=== PATIENT | female | born 1970 | race Caucasian/White ===

== ENCOUNTER 2020-07-18 11:46 | Emergency (ER) | payer OTHER ==
[~2020-07-18] VITALS: Ht 160 cm; Wt 63.5 kg
[~2020-07-18 11:46] MED LIST: ACET325 PO; ACET500 PO; ALBU90OI INH; ALUMAG30SU PO; AMOX250; AMPDEX10 PO; AZIT250 PO; B-1100 MG; BENADRYL25 MG PO; BENZ100A PO; BUPR100ER PO; CELEXA; CEPH500 PO; CHLO25 PO; CIPR500 PO; CITA20 PO; CLIN150 PO; CYAN100; CYAN1000 PO; Cipro500 MG PO; DOXY100 PO; FAMO20 PO; FOLI1 PO; HALO.05TC TOP; HYDACE5 PO; IBUP400 PO; INSLIS75I; LACT10SY PO; LEVO750 PO; LIBRIUM; LORA.5 PO; LORA1 PO; MELA3 PO; MOM PO; MULTI VITAMIN1 EACH PO; MULVITMIND PO; NALT50 PO; NICO14TP TOP; OMEP20ER PO; ONDA4ODT; ONDA4ODT MM; PANT40 PO; PENVK500; POTCHL20ER PO; PROACE100 PO; PROC10 PO; PROC5 PO; PROM25 PO; RANI150 PO; RXHYDACE PO; RXPROACE PO; RXPROM25 PO; Restoril15 MG PO; SACC250C PO; SERT100 PO; SERT50 PO; SLEEPING PILL; THIA100 PO; TRAM50; TRAM50 PO; TRIAOIA; Therapeutic M1 EAC5 PO; Zofran Odt8 MG SL; Zoloft50 MG PO
[2020-07-18] MEDS ORDERED: OXYACE7.5T PO (15:31)
[2020-07-18] MEDS ORDERED: CRUTCH2 XX (15:32)
[2020-07-20] MEDS ORDERED: BENADRYL25 MG PO (14:05)
== END 2020-07-18 16:14 | disposition home or self-care (01) ==
LOC: ER 11:46
DX: S22.42XA Multiple fractures of ribs, left side, initial encounter for closed fracture (principal); S82.832A Other fracture of upper and lower end of left fibula, initial encounter for closed fracture; S82.302A Unspecified fracture of lower end of left tibia, initial encounter for closed fracture; F41.9 Anxiety disorder, unspecified; Z88.0 Allergy status to penicillin; Z91.018 Allergy to other foods; W01.0XXA Fall on same level from slipping, tripping and stumbling without subsequent striking against object, initial encounter; Y93.01 Activity, walking, marching and hiking
CPT/HCPCS: 29505; 71101; 73562-LT; 73610; 96372-59; 99283-25; J1170

== ENCOUNTER 2020-07-21 11:18 | Day surgery (SDC) | payer OTHER ==
[~2020-07-21 11:18] MED LIST changes: +CRUTCH2 XX; +OXYACE7.5T PO
--- NOTE | 2020-07-21 12:08 | NUR ---
Lungs clear T/O to Auscultation. History, Chart, Medications and Allergies reviewed before start of procedure.Patient confirms NPO status and agrees with scheduled surgery. Patient States Post-Procedure ride home has been arranged.
--- NOTE | 2020-07-21 15:38 | NUR ---
PT IS DOING WELL AND AWAITING DC. WAITING FOR HER TO ARRIVE.
--- NOTE | 2020-07-21 16:04 | NUR ---
20 GAUGE IV D/C'D FROM LEFT FA AND WNL. Patient up to Ambulate independently. Gait steady. Discharge instructions reviewed with patient. Patient verbalizes understanding. Copy given to patient to take home. Discharged via wheelchair to private car for ride home.
== END 2020-07-21 23:27 | disposition home or self-care (01) ==
LOC: ORSCMMR 11:18
PROVIDERS: Orthopaedic Surgery
PROC: 0MQR0ZZ Repair Left Ankle Bursa and Ligament, Open Approach (ICD-10-PCS; principal; 2020-07-21 07:30)
DX: S93.492A Sprain of other ligament of left ankle, initial encounter (principal); S82.62XA Displaced fracture of lateral malleolus of left fibula, initial encounter for closed fracture; F17.210 Nicotine dependence, cigarettes, uncomplicated; K21.9 Gastro-esophageal reflux disease without esophagitis; Z79.899 Other long term (current) drug therapy
CPT/HCPCS: A9270; C1776; J1100; J2250; J2405; J2704; J3010; J7120

== ENCOUNTER 2020-10-28 23:41 | Emergency (ER) | payer OTHER ==
[~2020-10-28] VITALS: Ht 160 cm; Wt 56.2 kg
[2020-10-29 00:11] LABS: BASOPHILS ABSOLUTE AUTO 0.11 K/mm3 (0.00-0.23); BASOPHILS PERCENT AUTO 1 % (0-2); EOSINOPHILS ABSOLUTE AUTO 0.01 K/mm3 (0.00-0.68); EOSINOPHILS PERCENT AUTO 0 % (0-6); Hematocrit 39.4 % (33.0-51.0); Hemoglobin 13.9 g/dL (11.5-16.0); IMMATURE GRAN ABSOLUTE AUTO 0.07 K/mm3 (0.00-0.10); IMMATURE GRAN PERCENT AUTO 1 % (0-1); LYMPHOCYTES ABSOLUTE AUTO 0.43 K/mm3 (0.84-5.20); LYMPHOCYTES PERCENT AUTO 3 % (21-46); MONOCYTES ABSOLUTE AUTO 0.39 K/mm3 (0.16-1.47); MONOCYTES PERCENT AUTO 3 % (4-13); Mean Corpuscular HGB Conc 35.3 g/dL (31.5-36.5); Mean Corpuscular Volume 102 fL (80-100); Mean Platelet Volume 9.5 fL (9.1-12.4); NEUTROPHILS ABSOLUTE AUTO 13.18 K/mm3 (1.96-9.15); NEUTROPHILS PERCENT AUTO 93 % (41-73); Platelet Count 533 K/mm3 (150-400); RDW Coefficient Variation 18.7 % (11.7-14.2); RDW Standard Deviation 69.6 fL (35.1-46.3); Red Blood Cell Count 3.86 M/mm3 (3.80-5.20); White Blood Cell Count 14.19 K/mm3 (4.00-11.30)
[2020-10-29 00:29] LABS: Alanine Aminotransfer (ALT/SGP 28 U/L (12-78); Albumin, Blood 3.9 g/dL (3.4-5.0); Albumin/Globulin Ratio 1.3 (0.8-1.8); Alk Phos 118 U/L (50-136); Anion Gap 15 mmol/L (6-16); Aspartate Aminotrans (AST/SGOT 43 U/L (12-37); Bilirubin, Total 3.9 mg/dL (0.1-1.0); Blood Urea Nitrogen 10 mg/dL (8-24); Bun/Creatinine Ratio 14.7 (12.0-20.0); CO2, Blood 29 mmol/L (21-32); Chloride, Blood 90 mmol/L (98-108); Creatinine, Blood 0.68 mg/dL (0.40-1.00); Ethanol (Alcohol), Blood, Med <3 mg/dL; Globulin, Blood 3.1 g/dL (2.2-4.0); Glomerular Filtration Rate >60 (60-); Glucose, Blood 185 mg/dL (70-99); Potassium, Blood 3.3 mmol/L (3.5-5.5); Sodium, Blood 134 mmol/L (136-145)
[2020-10-29 00:32] LABS: Acetaminophen, Random <2.0 ug/mL (10.0-30.0); Salicylate <1.7 mg/dL (2.8-20.0)
[2020-10-29 03:10] LABS: Source, Urine Clean Catch
[2020-10-29 03:12] LABS: Blood, Urine 1+ (Neg); Glucose Qualitative, Urine Neg (Neg); Ketones, Urine 3+ (Neg); Leukocyte Esterase, Urine 2+ (Neg); Nitrite, Urine Pos (Neg); Protein, Urine 2+ (Neg); Specific Gravity, Urine 1.025 (1.003-1.022); Urobilinogen, Urine 3+ (Normal)
[2020-10-29 03:13] LABS: Appearance, Urine Hazy (Clear); Bilirubin, Urine 2+ (Neg); Color, Urine Amber (P-Yellow)
[2020-10-29 03:19] LABS: Amorphous Light (0-Heavy); Bacteria Many /hpf; Mucus Light (0-Heavy); Squamous Epithelial Cells Mod /hpf (Few); White Blood Cells, Urine TNTC /hpf (0-5)
[2020-10-29 03:24] LABS: U Amphetamine Screen Not Detected; U Barbituate Screen Not Detected; U Benzodiazapine Screen DETECTED; U Buprenorphine Screen Not Detected; U Cannabinoids Screen Not Detected; U Cocaine Screen Not Detected; U Methadone Screen Not Detected; U Methamphetamine Screen Not Detected; U Opiates Screen Not Detected; U Oxycodone Screen Not Detected; U Phencyclidine Screen Not Detected; U Propoxyphene Screen Not Detected
[2020-10-29] MEDS ORDERED: CEFP200 PO (04:47)
== END 2020-10-29 05:26 | disposition home or self-care (01) ==
LOC: ER 23:41
PROVIDERS: Emergency Medicine
DX: N39.0 Urinary tract infection, site not specified (principal)
CPT/HCPCS: 36415; 80053; 81001; 81025; 85025; 87086; 96365; 96366; 96368; 96375; 99285; G0480; J0696; J2060; J2405; J3411; J3475; J7042

== ENCOUNTER → 2021-02-15 | Outpatient (CLI) | payer OTHER ==
[~2021-02-15] MED LIST changes: +CEFP200 PO
[2021-02-18 11:10] LABS: HPV 16 Positive (Negative); HPV 18 Negative (Negative); HPV OTHER HR TYPES Positive (Negative)
== END ==
LOC: LAB 17:06 → LAB SHORT 17:06
PROVIDERS: Family Medicine
DX: Z01.419 Encounter for gynecological examination (general) (routine) without abnormal findings (principal); Z88.0 Allergy status to penicillin; Z88.1 Allergy status to other antibiotic agents; Z88.5 Allergy status to narcotic agent; Z91.018 Allergy to other foods
CPT/HCPCS: 87624; G0123

== ENCOUNTER → 2021-03-02 | Outpatient (CLI) | payer OTHER | END | disposition home or self-care (01) | LOC: LAB 07:35 → LAB SHORT 07:35 | DX: D06.0 Carcinoma in situ of endocervix (principal); N84.1 Polyp of cervix uteri; N84.0 Polyp of corpus uteri | CPT/HCPCS: 88305 ==

== ENCOUNTER 2021-06-16 13:23 | Day surgery (SDC) | payer OTHER ==
[~2021-06-16] VITALS: Ht 160 cm; Wt 98.5 kg
[2021-06-16 14:53] LABS: Anion Gap 10 mmol/L (6-16); Blood Urea Nitrogen 6 mg/dL (8-24); Bun/Creatinine Ratio 9.5 (12.0-20.0); CO2, Blood 23 mmol/L (21-32); Calcium, Blood 9.4 mg/dL (8.5-10.1); Chloride, Blood 106 mmol/L (98-108); Creatinine, Blood 0.63 mg/dL (0.40-1.00); Glomerular Filtration Rate >60 (60-); Glucose, Blood 117 mg/dL (70-99); Potassium, Blood 2.9 mmol/L (3.5-5.5); Sodium, Blood 139 mmol/L (136-145)
--- NOTE | 2021-06-16 16:13 | NUR ---
06/16/21 2734 Mitra Savage PT MOVED TO STEP DOWN AREA WITH DAUGHTER SENIA PRESENT TO SPEAK WITH DR. RUDD REGARDING MOVING FOWARD WITH THE PROCEEDURE TOMORROW DUE TO LOW POTASSIUM LEVELS. PT PROVIDED POTASSIUM CLORID TABS DISSOVLED IN WATER. CALL LIGHT WITHIN REACH. NO QUESTIONS OR CONCERNS AT THIS TIME. PT PROVIDED WATER AND A WARM BLANKET.
== END 2021-06-16 16:25 | disposition home or self-care (01) ==
LOC: ORSCSDS 13:23
PROVIDERS: Obstetrics & Gynecology
DX: N87.9 Dysplasia of cervix uteri, unspecified (principal); Z53.9 Procedure and treatment not carried out, unspecified reason
CPT/HCPCS: 80048; A9270

== ENCOUNTER 2021-09-22 07:31 | Day surgery (SDC) | payer OTHER ==
[~2021-09-22] VITALS: Ht 160 cm; Wt 65.1 kg
--- NOTE | 2021-09-22 08:54 | NUR ---
09/22/21 0854 Robbie Hill & JAY USED BY DR FLOWERS DURING PROCEDURE AT [facility].
== END 2021-09-22 10:33 | disposition home or self-care (01) ==
LOC: ORSCSDS 07:31
PROVIDERS: Obstetrics & Gynecology
PROC: 0UBC7ZX Excision of Cervix, Via Natural or Artificial Opening, Diagnostic (ICD-10-PCS; principal; 2021-09-22 08:30)
DX: D06.0 Carcinoma in situ of endocervix (principal); F10.20 Alcohol dependence, uncomplicated; F17.210 Nicotine dependence, cigarettes, uncomplicated; I10 Essential (primary) hypertension
CPT/HCPCS: 88305; J1885; J2250; J2704; J3010; J7120

== ENCOUNTER 2022-07-13 17:54 | Inpatient (IN) | payer OTHER ==
[~2022-07-13] VITALS: Ht 160 cm; Wt 64.6 kg
[~2022-07-13 17:54] MED LIST changes: +Acetaminophen650 M1; +IBUP200; +MULTI-VITAMIN1 EAC2 PO; +SERT25 PO; +STATIN; +TRAZ50 PO
[2022-07-13 20:11] LABS: Hematocrit 33.6 % (33.0-51.0); Hemoglobin 11.9 g/dL (11.5-16.0); Mean Corpuscular HGB 32.2 pg (26.0-34.0); Mean Corpuscular HGB Conc 35.4 g/dL (31.5-36.5); Mean Corpuscular Volume 91 fL (80-100); NRBC ABSOLUTE 0.02 K/mm3 (0.00-0.02); NRBC Auto 0.1 /100 WBC (0.0-0.2); RDW Coefficient Variation 16.5 % (11.7-14.2); RDW Standard Deviation 55.4 fL (35.1-46.3); White Blood Cell Count 14.12 K/mm3 (4.00-11.30)
[2022-07-13 20:38] LABS: Albumin, Blood 3.1 g/dL (3.4-5.0); Albumin/Globulin Ratio 0.8 (0.8-1.8); Calcium, Blood 14.5 mg/dL (8.5-10.1); Creatinine, Blood 0.57 mg/dL (0.40-1.00); Globulin, Blood 3.7 g/dL (2.2-4.0); Total Protein, Blood 6.8 g/dL (6.4-8.2)
[2022-07-13 21:16] LABS: BASOPHILS ABSOLUTE MAN 0.14 K/mm3 (0.00-0.23); BASOPHILS PERCENT MAN 1 % (0-2); EOSINOPHILS ABSOLUTE MAN 0.14 K/mm3 (0.00-0.68); EOSINOPHILS PERCENT MAN 1 % (0-6); LYMPHOCYTES ABSOLUTE MAN 0.84 K/mm3 (0.84-5.20); LYMPHOCYTES PERCENT MAN 6 % (21-46); MONOCYTES ABSOLUTE MAN 0.42 K/mm3 (0.16-1.47); MONOCYTES PERCENT MAN 3 % (4-13); NEUTROPHILS ABSOLUTE MAN 12.56 K/mm3 (1.96-9.15); SEG NEUTROPHILS PERCENT MAN 89 % (41-73); TOTAL CELLS COUNTED 100
[2022-07-13 21:22] LABS: Platelet Count 378 K/mm3 (150-400)
[2022-07-13 22:28] LABS: Source, Urine Clean Catch
[2022-07-13 22:30] LABS: Blood, Urine Neg (Neg); Glucose Qualitative, Urine Neg (Neg); Ketones, Urine Neg (Neg); Leukocyte Esterase, Urine 1+ (Neg); Nitrite, Urine Neg (Neg); Protein, Urine 1+ (Neg); Specific Gravity, Urine 1.015 (1.003-1.022); Urobilinogen, Urine 3+ (Normal)
[2022-07-13 23:03] LABS: Bilirubin, Urine 1+ (Neg)
[2022-07-13 23:09] LABS: Appearance, Urine Cloudy (Clear); Color, Urine Yellow (P-Yellow)
[2022-07-13 23:10] LABS: Amorphous Mod (0-Heavy); Bacteria Few /hpf; Red Blood Cells, Urine 0-2 /hpf (0-2); Squamous Epithelial Cells Few /hpf (Few)
[2022-07-13 23:11] LABS: Granular Casts 0-2 /lpf (0); Hyaline Casts 0-2 /lpf (0-2)
--- NOTE | 2022-07-14 04:00 | NUR ---
0220: PT ARRIVED IN UNIT. TRANSFERRED FROM [facility] TO BED WITH 1SBA, WENT TO RESTROOM TO HAVE A BM. PT HAD 1 LARGE FORM BM WHEN SHE GOT IN THE ROOM. PT APPEARST DISTRESS, C/O RECTAL PAIN AND SOME ABD PAIN. REPORTS CHILLS. VSS. TOLERATING PO INTAKE DENIES N/V. IV FLUIDS INFUSING. AOX4. ANXIOUS. WARM BLANKET WAS GIVEN, PT REPORTS RELIEF AND COMFORT. CALL LIGHT WITHIN REACH. WILL CONTINUE TO MONITOR.
--- NOTE | 2022-07-14 04:07 | NUR ---
SHIFT SUMMARY PT HAD 1 LARGE BM IN THE UNIT, 2 LARGE BM WHEN SHE WAS AT THE ED AFTER ENEMA WAS ADMINSITERED. PT REPORTS RELIEF. PT REPORTS RECTAL PAIN, HX HEMORRHOIDS. PT ALSO REPORTS ABD PAIN. PAIN AND ANXIETY RELIEF WITH WARM BLANKET. IV FLUIDS INFUSING AT 150 MLS/HR. TELE ON SINUS AT 80'S. VSS. DENIES CP AND SOB. PT ON ROOMAIR. IV ON L FOREARM, WRAPPED WITH COBAN AND SECURED. IND IN ROOM. BSC OFFERED DUE TO URGE TO HAVE A BM. VOIDING. AOX3. TOLERATING PO INTAKE. DENIES N/V. CALL LIGHT WITHIN REACH. WILL PROVIDE REPORT TO ONCOMING NURSE.
[2022-07-14 07:34] LABS: Bun/Creatinine Ratio 13.8 (12.0-20.0); Calcium, Blood 12.6 mg/dL (8.5-10.1); Creatinine, Blood 0.58 mg/dL (0.40-1.00); Potassium, Blood 3.2 mmol/L (3.5-5.5)
--- NOTE | 2022-07-14 13:21 | NUR ---
TO IMAGING VIA WHEELCHAIR
[2022-07-14 13:50] LABS: International Normalized Ratio 1.16; Prothrombin Time Results 12.1 Sec (9.7-11.5)
--- NOTE | 2022-07-14 17:58 | NUR ---
PT REPORTS ABD PAIN HAS LESSENED FROM WHEN ADMITTED BUT STILL HAS LOWER ABD PAIN-DECLINES PAIN MED AT THIS TIME. TAKING SMALL AMOUNTS OF REGULAR DIET WITHOUT NAUSEA. FORMED DANITZA MONTES DE OCA THIS SHIFT.
[2022-07-15 04:45] LABS: BASOPHILS ABSOLUTE AUTO 0.04 K/mm3 (0.00-0.23); BASOPHILS PERCENT AUTO 0 % (0-2); EOSINOPHILS ABSOLUTE AUTO 0.19 K/mm3 (0.00-0.68); EOSINOPHILS PERCENT AUTO 2 % (0-6); Hematocrit 28.5 % (33.0-51.0); Hemoglobin 9.7 g/dL (11.5-16.0); IMMATURE GRAN ABSOLUTE AUTO 0.04 K/mm3 (0.00-0.10); IMMATURE GRAN PERCENT AUTO 0 % (0-1); LYMPHOCYTES ABSOLUTE AUTO 1.08 K/mm3 (0.84-5.20); LYMPHOCYTES PERCENT AUTO 11 % (21-46); MONOCYTES ABSOLUTE AUTO 0.81 K/mm3 (0.16-1.47); MONOCYTES PERCENT AUTO 8 % (4-13); Mean Corpuscular HGB 32.1 pg (26.0-34.0); Mean Corpuscular Volume 94 fL (80-100); Mean Platelet Volume 9.2 fL (9.1-12.4); NEUTROPHILS ABSOLUTE AUTO 7.66 K/mm3 (1.96-9.15); NEUTROPHILS PERCENT AUTO 78 % (41-73); Platelet Count 273 K/mm3 (150-400); RDW Coefficient Variation 16.4 % (11.7-14.2); RDW Standard Deviation 56.4 fL (35.1-46.3); Red Blood Cell Count 3.02 M/mm3 (3.80-5.20); White Blood Cell Count 9.82 K/mm3 (4.00-11.30)
[2022-07-15 05:02] LABS: Albumin, Blood 2.3 g/dL (3.4-5.0); Anion Gap 6 mmol/L (6-16); Blood Urea Nitrogen 5 mg/dL (8-24); Bun/Creatinine Ratio 8.4 (12.0-20.0); CO2, Blood 29 mmol/L (21-32); Calcium, Blood 11.3 mg/dL (8.5-10.1); Chloride, Blood 106 mmol/L (98-108); Creatinine, Blood 0.59 mg/dL (0.40-1.00); Glomerular Filtration Rate 108 (60-); Glucose, Blood 99 mg/dL (70-99); Phosphorus, Blood 1.6 mg/dL (2.5-4.9); Sodium, Blood 141 mmol/L (136-145)
--- NOTE | 2022-07-15 08:09 | NUR ---
SHIFT SUMMARY NO ACUTE CHANGES OVERNIGHT. VSS. PT HAD FLUIDS OVERNIGHT. SALINE LOCKED AT 0300 AM. TOLERATING PO INTAKE. DENIES N/V. PT APPEARS TO BE DEPRESSED BUT CALM. SLEPT MOST OF THE TIME T/O SHIFT. DENIES CP/SOB. IND IN ROOM. HAD A BM. VOIDING. AO4. CALLS APPROPRIATELY. CALL LIGHT WITHIN REACH. REPORT GIVEN TO MALA. PT DENIES PAIN.
--- NOTE | 2022-07-15 12:32 | NUR ---
PT ARRIVED BACK TO UNIT FROM IMMAGING AT APROX 1155. PT C/O "TERRIBLE PAIN" ABD SOFT, NO BRUISING OR BLEEDING APPARENT FROM INSERTION SITE. DR GRANGER PUT IN ORDER FOR 0.5MG DILAUDID Q2 FOR PAIN, PT STATES "ITS NOT WORKING, CAN I GET VICODIN" DR TAYLOR CALLED-NO ANSWER. DR MORENO AT BEDSIDE AT THIS TIME. IF UNABLE TO GET AHOLD OF DR TAYLOR IN 30 MIN WILL REACH OUT TO HIM.
--- NOTE | 2022-07-15 19:30 | NUR ---
SHIFT SUMMARY PT PAIN IMPROVED W/NORCO FOLLOWING LIVER BX. PT IND IN ROOM, TOLERATING PO. PT VERY ANXIOUS AT TIMES UT CALMS WITH DISTRACTION REASSURACE.
[2022-07-16 03:19] LABS: BASOPHILS ABSOLUTE AUTO 0.04 K/mm3 (0.00-0.23); BASOPHILS PERCENT AUTO 0 % (0-2); EOSINOPHILS ABSOLUTE AUTO 0.26 K/mm3 (0.00-0.68); EOSINOPHILS PERCENT AUTO 3 % (0-6); Hematocrit 23.7 % (33.0-51.0); Hemoglobin 8.2 g/dL (11.5-16.0); IMMATURE GRAN ABSOLUTE AUTO 0.04 K/mm3 (0.00-0.10); IMMATURE GRAN PERCENT AUTO 0 % (0-1); LYMPHOCYTES ABSOLUTE AUTO 1.08 K/mm3 (0.84-5.20); LYMPHOCYTES PERCENT AUTO 11 % (21-46); MONOCYTES ABSOLUTE AUTO 0.58 K/mm3 (0.16-1.47); MONOCYTES PERCENT AUTO 6 % (4-13); Mean Corpuscular HGB 32.5 pg (26.0-34.0); Mean Corpuscular HGB Conc 34.6 g/dL (31.5-36.5); Mean Corpuscular Volume 94 fL (80-100); NEUTROPHILS ABSOLUTE AUTO 7.79 K/mm3 (1.96-9.15); NEUTROPHILS PERCENT AUTO 80 % (41-73); RDW Coefficient Variation 16.3 % (11.7-14.2); RDW Standard Deviation 56.6 fL (35.1-46.3); Red Blood Cell Count 2.52 M/mm3 (3.80-5.20); White Blood Cell Count 9.79 K/mm3 (4.00-11.30)
[2022-07-16 03:26] LABS: Albumin, Blood 2.4 g/dL (3.4-5.0); Anion Gap 6 mmol/L (6-16); Blood Urea Nitrogen 6 mg/dL (8-24); Bun/Creatinine Ratio 10.2 (12.0-20.0); CO2, Blood 30 mmol/L (21-32); Calcium, Blood 10.9 mg/dL (8.5-10.1); Chloride, Blood 105 mmol/L (98-108); Creatinine, Blood 0.59 mg/dL (0.40-1.00); Glomerular Filtration Rate 108 (60-); Glucose, Blood 114 mg/dL (70-99); Mean Platelet Volume 9.5 fL (9.1-12.4); Phosphorus, Blood 2.7 mg/dL (2.5-4.9); Platelet Count 257 K/mm3 (150-400); Potassium, Blood 2.8 mmol/L (3.5-5.5); Sodium, Blood 141 mmol/L (136-145)
--- NOTE | 2022-07-16 07:15 | NUR ---
SHIFT SUMMARY ASSUMED CARE OF PATIENT AROUND 0200. NO CHANGES SINCE ASSESSMENT. VSS, PATIENT ABLE TO MAKE NEEDS KNOWN TO STAFF. REPORT GIVEN TO DAY SHIFT RN.
--- NOTE | 2022-07-16 13:10 | NUR ---
Per pharmacist recommendation, frequent monitoring pt after administration of antibiotic. Pt denies rash, itchy throat, or associated allergic reaction symptoms. Pt is eager for discharge.
[2022-07-16 13:19] LABS: Albumin, Blood 2.7 g/dL (3.4-5.0); Anion Gap 8 mmol/L (6-16); Blood Urea Nitrogen 4 mg/dL (8-24); Bun/Creatinine Ratio 6.5 (12.0-20.0); CO2, Blood 27 mmol/L (21-32); Calcium, Blood 11.6 mg/dL (8.5-10.1); Chloride, Blood 103 mmol/L (98-108); Creatinine, Blood 0.62 mg/dL (0.40-1.00); Glomerular Filtration Rate 106 (60-); Glucose, Blood 110 mg/dL (70-99); Phosphorus, Blood 2.6 mg/dL (2.5-4.9); Potassium, Blood 3.7 mmol/L (3.5-5.5); Sodium, Blood 138 mmol/L (136-145)
--- NOTE | 2022-07-16 13:56 | NUR ---
PER PHYSICIAN REQUEST, CALLED TO NOTIFY DR. TAYLOR THAT PT'S LABS HAD RESULTED FOR REVIEW PRIOR TO DISCHARGE.
[2022-07-16] MEDS ORDERED: Cefpodoxime Pr100 MG PO (16:50)
[2022-07-16] MEDS ORDERED: VISBIOME 112.51 EACH PO (16:52)
[2022-07-16] MEDS ORDERED: NICODERM CQ1 EA11 TOP (16:53)
[2022-07-16] MEDS ORDERED: POTCHL20ER PO (16:54)
[2022-07-16] MEDS ORDERED: SENNA LAXATIVE8.6 MG PO (16:55)
--- NOTE | 2022-07-16 17:30 | NUR ---
DISCHARGE NOTE PT WAS DISCHARGED TO CARE OF HER , TO PRIVATE VEHICLE. PT WAS WHEELED OUT OF HOSPITAL VIA WHEELCHAIR PROPELLED BY [facility], WITH ALL PERSONAL BELONGINGS. DISCHARGE MEDICATIONS WERE FAXED TO [facility] IN [place]. DISCHARGE INSTRUCTIONS REVIEWED WITH PT AND HER , NO FURTHER QUESTIONS AT THIS TIME. TELEMETRY REMOVED. IV REMOVED.
== END 2022-07-16 17:45 | disposition home or self-care (01) | DRG 872 ==
LOC: ER 17:54 → ERHOLD 17:55 → SURS 07-14 02:24
PROVIDERS: Family Medicine; Physician Assistant; ADMIT Internal Medicine
PROC: 0FB03ZX Excision of Liver, Percutaneous Approach, Diagnostic (ICD-10-PCS; principal; 2022-07-15)
DX: A41.9 Sepsis, unspecified organism (principal); C78.7 Secondary malignant neoplasm of liver and intrahepatic bile duct; E87.1 Hypo-osmolality and hyponatremia; N39.0 Urinary tract infection, site not specified; F41.0 Panic disorder [episodic paroxysmal anxiety]; Z28.21 Immunization not carried out because of patient refusal; K21.9 Gastro-esophageal reflux disease without esophagitis; J44.9 Chronic obstructive pulmonary disease, unspecified; G25.81 Restless legs syndrome; K59.00 Constipation, unspecified; D06.0 Carcinoma in situ of endocervix; E83.52 Hypercalcemia; F10.20 Alcohol dependence, uncomplicated; E87.6 Hypokalemia; D72.828 Other elevated white blood cell count; E88.09 Other disorders of plasma-protein metabolism, not elsewhere classified; E83.39 Other disorders of phosphorus metabolism; B96.20 Unspecified Escherichia coli [E. coli] as the cause of diseases classified elsewhere; F17.210 Nicotine dependence, cigarettes, uncomplicated; Z71.6 Tobacco abuse counseling; Z90.710 Acquired absence of both cervix and uterus; Z88.0 Allergy status to penicillin; Z88.6 Allergy status to analgesic agent; Z91.018 Allergy to other foods; Z79.899 Other long term (current) drug therapy
CPT/HCPCS: 36415; 47000; 71046; 71260; 74176; 74177; 76942; 80048; 80053; 80069; 81001; 82397; 82652; 83605; 83690; 83970; 85025; 85610; 85730; 86304; 87077; 87086; 87186; 88307; 88341; 88342; 93005; 93010; 96360; 96361; 96372; 96374; 99285-25; A9270; G0378; J0696; J1170; J1650; J3489; J7030; J7060; Q9967

== ENCOUNTER 2022-09-06 08:47 | Day surgery (SDC) | payer OTHER ==
[~2022-09-06] VITALS: Ht 160 cm; Wt 62.2 kg
[~2022-09-06 08:47] MED LIST changes: +Cefpodoxime Pr100 MG PO; +NICODERM CQ1 EA11 TOP; +SENNA LAXATIVE8.6 MG PO; +VISBIOME 112.51 EACH PO
--- NOTE | 2022-09-06 13:34 | NUR ---
Patient up to Ambulate independently. Gait steady. Discharge instructions reviewed with patient. Patient verbalizes understanding. Copy given to patient to take home. Discharged via wheelchair to private car for ride home.
== END 2022-09-06 22:58 | disposition home or self-care (01) ==
LOC: ORSCMMR 08:47 → ORD 10:00 → ORSCMMR 10:00
PROVIDERS: Surgery
PROC: B543ZZA Ultrasonography of Right Jugular Veins, Guidance (ICD-10-PCS; principal; 2022-09-06 10:00)
PROC: 05HM33Z Insertion of Infusion Device into Right Internal Jugular Vein, Percutaneous Approach (ICD-10-PCS; principal; 2022-09-06 10:00)
PROC: 0JH60WZ Insertion of Totally Implantable Vascular Access Device into Chest Subcutaneous Tissue and Fascia, Open Approach (ICD-10-PCS; principal; 2022-09-06 10:00)
DX: C22.1 Intrahepatic bile duct carcinoma (principal); C78.1 Secondary malignant neoplasm of mediastinum; F17.210 Nicotine dependence, cigarettes, uncomplicated; Z79.899 Other long term (current) drug therapy
CPT/HCPCS: 77001; A9270; C1788; J1642; J2250; J2704; J2795; J3010; J7120

== ENCOUNTER 2022-10-06 00:12 | Day surgery (SDC) | payer OTHER ==
[2022-10-06] MEDS ORDERED: Norco 5-325 Ta1 EACH PO (14:21)
[2022-10-06] MEDS ORDERED: EMLA CREAM (14:21)
[2022-10-06] MEDS ORDERED: ONDA4ODT (14:22)
[2022-10-06] MEDS ORDERED: METO10 PO (14:22)
[2022-10-06] MEDS ORDERED: MORPHINE SULFAT15 M1 PO (14:23)
[2022-10-06] MEDS ORDERED: DEXA4 PO (14:55)
== END 2022-10-06 17:41 | disposition home or self-care (01) ==
LOC: ATC 00:12
DX: C22.1 Intrahepatic bile duct carcinoma (principal); D64.81 Anemia due to antineoplastic chemotherapy; D70.1 Agranulocytosis secondary to cancer chemotherapy; F10.20 Alcohol dependence, uncomplicated; F17.210 Nicotine dependence, cigarettes, uncomplicated; Z79.899 Other long term (current) drug therapy; Z88.0 Allergy status to penicillin; Z88.5 Allergy status to narcotic agent
CPT/HCPCS: 36415; 86850; 86900; 86901; 86923; J1642; J7040; P9016

== ENCOUNTER 2022-10-22 21:45 | Observation (INO) | payer OTHER ==
[~2022-10-22] VITALS: Ht 160 cm; Wt 54.4 kg
[~2022-10-22 21:45] MED LIST changes: +DEXA4 PO; +EMLA CREAM; +METO10 PO; +MORPHINE SULFAT15 M1 PO; +Norco 5-325 Ta1 EACH PO
[2022-10-22 22:15] LABS: Source, Urine Clean Catch
[2022-10-22 22:17] LABS: BASOPHILS ABSOLUTE AUTO 0.09 K/mm3 (0.00-0.23); BASOPHILS PERCENT AUTO 1 % (0-2); EOSINOPHILS ABSOLUTE AUTO 0.22 K/mm3 (0.00-0.68); EOSINOPHILS PERCENT AUTO 2 % (0-6); Hematocrit 32.9 % (33.0-51.0); IMMATURE GRAN PERCENT AUTO 1 % (0-1); LYMPHOCYTES ABSOLUTE AUTO 0.84 K/mm3 (0.84-5.20); LYMPHOCYTES PERCENT AUTO 6 % (21-46); MONOCYTES ABSOLUTE AUTO 0.22 K/mm3 (0.16-1.47); MONOCYTES PERCENT AUTO 2 % (4-13); Mean Corpuscular HGB 32.7 pg (26.0-34.0); Mean Corpuscular HGB Conc 33.4 g/dL (31.5-36.5); Mean Corpuscular Volume 98 fL (80-100); Mean Platelet Volume 10.5 fL (9.1-12.4); NEUTROPHILS ABSOLUTE AUTO 13.08 K/mm3 (1.96-9.15); NEUTROPHILS PERCENT AUTO 90 % (41-73); Platelet Count 165 K/mm3 (150-400); RDW Coefficient Variation 21.2 % (11.7-14.2); RDW Standard Deviation 75.2 fL (35.1-46.3); Red Blood Cell Count 3.36 M/mm3 (3.80-5.20); White Blood Cell Count 14.55 K/mm3 (4.00-11.30)
[2022-10-22 22:18] LABS: Blood, Urine 5+ (Neg); Glucose Qualitative, Urine Neg (Neg); Ketones, Urine 1+ (Neg); Leukocyte Esterase, Urine 3+ (Neg); Nitrite, Urine Pos (Neg); Protein, Urine 3+ (Neg); Specific Gravity, Urine 1.015 (1.003-1.022); Urobilinogen, Urine 3+ (Normal)
[2022-10-22 22:29] LABS: Appearance, Urine Cloudy (Clear); Bacteria Mod /hpf; Bilirubin, Urine 1+ (Neg); Color, Urine Amber (P-Yellow); Red Blood Cells, Urine 50-100 /hpf (0-2); Squamous Epithelial Cells Few /hpf (Few); White Blood Cells, Urine TNTC /hpf (0-5)
[2022-10-22 22:33] LABS: Albumin/Globulin Ratio 0.9 (0.8-1.8); Bilirubin, Total 0.8 mg/dL (0.1-1.0); Bun/Creatinine Ratio 22.9 (12.0-20.0); Calcium, Blood 9.2 mg/dL (8.5-10.1); Creatinine, Blood 0.35 mg/dL (0.40-1.00); Globulin, Blood 3.5 g/dL (2.2-4.0); Potassium, Blood 3.4 mmol/L (3.5-5.5); Total Protein, Blood 6.5 g/dL (6.4-8.2)
[2022-10-23] MEDS ORDERED: TRAZ50 PO (00:09)
[2022-10-23] MEDS ORDERED: DOCUZEN 8.6-501 EACH PO (00:12)
[2022-10-23] MEDS ORDERED: LIDOTOR 2.5%-21 EACH TOP (00:15)
[2022-10-23 02:26] LABS: BASOPHILS ABSOLUTE AUTO 0.06 K/mm3 (0.00-0.23); BASOPHILS PERCENT AUTO 1 % (0-2); EOSINOPHILS PERCENT AUTO 2 % (0-6); Hematocrit 28.9 % (33.0-51.0); Hemoglobin 9.5 g/dL (11.5-16.0); IMMATURE GRAN ABSOLUTE AUTO 0.07 K/mm3 (0.00-0.10); IMMATURE GRAN PERCENT AUTO 1 % (0-1); LYMPHOCYTES ABSOLUTE AUTO 0.74 K/mm3 (0.84-5.20); LYMPHOCYTES PERCENT AUTO 8 % (21-46); MONOCYTES PERCENT AUTO 2 % (4-13); Mean Corpuscular HGB 32.8 pg (26.0-34.0); Mean Corpuscular HGB Conc 32.9 g/dL (31.5-36.5); Mean Corpuscular Volume 100 fL (80-100); Mean Platelet Volume 10.8 fL (9.1-12.4); NEUTROPHILS ABSOLUTE AUTO 8.22 K/mm3 (1.96-9.15); NEUTROPHILS PERCENT AUTO 87 % (41-73); Platelet Count 125 K/mm3 (150-400); RDW Coefficient Variation 21.3 % (11.7-14.2); White Blood Cell Count 9.49 K/mm3 (4.00-11.30)
[2022-10-23 02:45] LABS: Albumin, Blood 2.6 g/dL (3.4-5.0); Albumin/Globulin Ratio 0.8 (0.8-1.8); Bilirubin, Total 0.5 mg/dL (0.1-1.0); Bun/Creatinine Ratio 24.1 (12.0-20.0); Calcium, Blood 8.3 mg/dL (8.5-10.1); Creatinine, Blood 0.37 mg/dL (0.40-1.00); Globulin, Blood 3.1 g/dL (2.2-4.0); Total Protein, Blood 5.7 g/dL (6.4-8.2)
--- NOTE | 2022-10-23 18:45 | NUR ---
SHIFT SUMMARY: PT A/O X 4 STANDBY ASSIST WITH WALKER. PT ONLY REPORTED MILD PAIN WITH URINATION WHICH RESOLVED POST VOID. NO PAIN MEDICATIONS HAD TO BE GIVEN THROUGHOUT THE DAY. PT ON NS AT 150 PER HOUR THROUGHOUT THE DAY TOLERATING WELL. PT REPORTED SHE IS FEELING BETTER AND STATING SHE FEELS WELL ENOUGH TO GO HOME AT SHIFT END. PT DID REPORT SHE HAS CHEMO SCHEDULED ON SUNDAY ALONG WITH A RADIOLOGY TEST. PT IS HOPEFUL TO BE DISCHARGED SO SHE DOES NOT MISS HER APPT. PT HAD HOME NICOTINE PATCH OF 14 MG ON TODAY AND SO ORDER CHANGED TO HOME DOSE AND TIME IT NEEDED TO BE REPLACED.
--- NOTE | 2022-10-24 04:57 | NUR ---
SHIFT SUMMARY A&O X 4. TELE IN PLACE WITH SR 70S. REPORTS NEXT CHEMOTHERAPY IS SundayOctober. IVF AT 150 PER HOUR INFUSING IN LAC IV. MEDIPORT IN PLACE, BUT IS PAINFUL. PT HAS BEEN RESTING QUIETLY THROUGHOUT MOST OF SHIFT. NO S/S OR C/O CP, SOB, N/V/D OR OTHER CONCERNS. WILL CONTINUE TO MONITOR AND PROVIDE CARE THROUGHOUT SHIFT.
[2022-10-24 08:27] LABS: Bun/Creatinine Ratio 24.7 (12.0-20.0); Calcium, Blood 7.8 mg/dL (8.5-10.1); Creatinine, Blood 0.36 mg/dL (0.40-1.00); Potassium, Blood 4.8 mmol/L (3.5-5.5)
[2022-10-24] MEDS ORDERED: NICODERM CQ1 EA11 TOP (10:45)
[2022-10-24] MEDS ORDERED: VISBIOME 112.51 EACH PO (10:45)
[2022-10-24] MEDS ORDERED: CEFU500T30 PO (10:46)
--- NOTE | 2022-10-24 13:03 | NUR ---
DISCHARGE SUMMARY: PT DISCHARGED TO HOME WITH SIGNIFICANT OTHER. PT AND SIG OTHER EDUCATED ON DISCHARGE INSTRUCTIONS AND MEDICATIONS. PT ADVISED TO CALL [facility] TO SET UP APPT WITH PCP SINCE THEY WERE CLOSED TODAY. PT VU. PT ASSISTED WITH PACKING UP BELONGINGS AND PT ESCORTED TO POV VIA WC BY NAE.
== END 2022-10-24 12:30 | disposition home or self-care (01) ==
LOC: ER 21:45 → MEDS 22:48
PROVIDERS: Emergency Medicine; Internal Medicine; ADMIT Internal Medicine
DX: A41.9 Sepsis, unspecified organism (principal); N39.0 Urinary tract infection, site not specified; R65.21 Severe sepsis with septic shock; E87.6 Hypokalemia; C22.1 Intrahepatic bile duct carcinoma; C78.7 Secondary malignant neoplasm of liver and intrahepatic bile duct; F10.20 Alcohol dependence, uncomplicated; J44.9 Chronic obstructive pulmonary disease, unspecified; F17.210 Nicotine dependence, cigarettes, uncomplicated; Z79.899 Other long term (current) drug therapy; Z88.5 Allergy status to narcotic agent; Z88.0 Allergy status to penicillin; Z88.8 Allergy status to other drugs, medicaments and biological substances; Z91.018 Allergy to other foods
CPT/HCPCS: 36415; 76770; 80048; 80053; 81001; 83605; 85025; 87077; 87086; 87186; 96361; 96365; 96372; 96375; 96376; 99284-25; A9270; G0378; J0696; J1170; J1642; J1650; J1885; J2270; J2405; J3010; J3480; J7030; J7050

== ENCOUNTER → 2022-11-01 | Emergency (ER) | payer OTHER ==
[~2022-11-01] VITALS: Ht 152.4 cm; Wt 56.7 kg
[~2022-11-01] MED LIST changes: +CEFU500T30 PO; +DOCUZEN 8.6-501 EACH PO; +LIDOTOR 2.5%-21 EACH TOP
[2022-11-01 08:00] LABS: BASOPHILS ABSOLUTE AUTO 0.03 K/mm3 (0.00-0.23); BASOPHILS PERCENT AUTO 0 % (0-2); EOSINOPHILS ABSOLUTE AUTO 0.03 K/mm3 (0.00-0.68); EOSINOPHILS PERCENT AUTO 0 % (0-6); Hematocrit 30.8 % (33.0-51.0); Hemoglobin 9.4 g/dL (11.5-16.0); IMMATURE GRAN ABSOLUTE AUTO 0.17 K/mm3 (0.00-0.10); IMMATURE GRAN PERCENT AUTO 1 % (0-1); LYMPHOCYTES ABSOLUTE AUTO 0.94 K/mm3 (0.84-5.20); LYMPHOCYTES PERCENT AUTO 4 % (21-46); MONOCYTES ABSOLUTE AUTO 0.94 K/mm3 (0.16-1.47); MONOCYTES PERCENT AUTO 4 % (4-13); Mean Corpuscular HGB 31.6 pg (26.0-34.0); Mean Corpuscular HGB Conc 30.5 g/dL (31.5-36.5); Mean Corpuscular Volume 104 fL (80-100); Mean Platelet Volume 10.3 fL (9.1-12.4); NEUTROPHILS ABSOLUTE AUTO 19.59 K/mm3 (1.96-9.15); NEUTROPHILS PERCENT AUTO 90 % (41-73); Platelet Count 140 K/mm3 (150-400); RDW Coefficient Variation 22.3 % (11.7-14.2); RDW Standard Deviation 84.3 fL (35.1-46.3); Red Blood Cell Count 2.97 M/mm3 (3.80-5.20)
[2022-11-01 08:14] LABS: Albumin, Blood 2.4 g/dL (3.4-5.0); Albumin/Globulin Ratio 0.9 (0.8-1.8); Bilirubin, Total 0.5 mg/dL (0.1-1.0); Bun/Creatinine Ratio 26.6 (12.0-20.0); Calcium, Blood 7.4 mg/dL (8.5-10.1); Creatinine, Blood 0.34 mg/dL (0.40-1.00); Globulin, Blood 2.8 g/dL (2.2-4.0); Total Protein, Blood 5.2 g/dL (6.4-8.2)
[2022-11-01 09:49] LABS: International Normalized Ratio 1.18; Prothrombin Time Results 12.3 Sec (9.7-11.5)
[2022-11-01 14:36] LABS: Source, Urine Voided
[2022-11-01 14:44] LABS: Appearance, Urine Clear (Clear); Bilirubin, Urine Neg (Neg); Blood, Urine Neg (Neg); Color, Urine Yellow (P-Yellow); Glucose Qualitative, Urine Neg (Neg); Ketones, Urine Neg (Neg); Leukocyte Esterase, Urine 1+ (Neg); Nitrite, Urine Neg (Neg); Protein, Urine Neg (Neg); Urobilinogen, Urine NORM (Normal)
[2022-11-01 15:04] LABS: Bacteria Rare /hpf; Red Blood Cells, Urine 0-2 /hpf (0-2); Squamous Epithelial Cells Few /hpf (Few)
[2022-11-01 15:46] LABS: Automated BF WBC Count 0.159 K/mm3 (0-999)
[2022-11-01 16:01] LABS: Glucose, Body Fluid 94 mg/dL; Lactate Dehydrogenase, Body Fl 57 U/L; Protein, Body Fluid 1.7 g/dL
[2022-11-01 16:06] LABS: Body Fluid WBC Count 159 /mm3 (0-999)
[2022-11-01 16:18] LABS: RBC Count, Body Fluid 38 /mm3 (0-0)
[2022-11-01 17:36] LABS: Total Cell Count, Body Fluid 200
[2022-11-01 17:37] LABS: Appearance, Body Fluid Hazy (Clear); Color, Body Fluid L Yellow (None-Yellow)
== END ==
LOC: ER 06:59
PROVIDERS: Emergency Medicine
DX: R18.8 Other ascites (principal); J44.9 Chronic obstructive pulmonary disease, unspecified; C22.9 Malignant neoplasm of liver, not specified as primary or secondary; F17.210 Nicotine dependence, cigarettes, uncomplicated; Z88.0 Allergy status to penicillin; Z88.8 Allergy status to other drugs, medicaments and biological substances; Z91.018 Allergy to other foods; Z79.899 Other long term (current) drug therapy
CPT/HCPCS: 36415; 49083; 74177; 80053; 81001; 82945; 83605; 83615; 83690; 84157; 85025; 85610; 85730; 89051; 96374-59; 96375-59; 96376-59; 99284-25; J1170; J1642; J2405; Q9967

== ENCOUNTER 2022-11-20 12:15 | Inpatient (IN) | payer OTHER ==
[~2022-11-20] VITALS: Ht 160 cm; Wt 71.5 kg
[2022-11-20 15:15] LABS: Source, Urine Straight Cath
[2022-11-20 15:22] LABS: Appearance, Urine Clear (Clear); Bilirubin, Urine Neg (Neg); Blood, Urine Neg (Neg); Color, Urine Yellow (P-Yellow); Glucose Qualitative, Urine Neg (Neg); Ketones, Urine Neg (Neg); Leukocyte Esterase, Urine 1+ (Neg); Nitrite, Urine Neg (Neg); Protein, Urine 1+ (Neg); Urobilinogen, Urine 2+ (Normal)
[2022-11-20 15:38] LABS: Bacteria Mod /hpf; Red Blood Cells, Urine 0-2 /hpf (0-2); Squamous Epithelial Cells Rare /hpf (Few); White Blood Cells, Urine 0-2 /hpf (0-5)
[2022-11-20 15:45] LABS: BASOPHILS ABSOLUTE AUTO 0.01 K/mm3 (0.00-0.23); BASOPHILS PERCENT AUTO 0 % (0-2); EOSINOPHILS ABSOLUTE AUTO 0.06 K/mm3 (0.00-0.68); EOSINOPHILS PERCENT AUTO 0 % (0-6); Hematocrit 25.7 % (33.0-51.0); Hemoglobin 8.1 g/dL (11.5-16.0); IMMATURE GRAN ABSOLUTE AUTO 0.13 K/mm3 (0.00-0.10); IMMATURE GRAN PERCENT AUTO 1 % (0-1); LYMPHOCYTES ABSOLUTE AUTO 0.48 K/mm3 (0.84-5.20); LYMPHOCYTES PERCENT AUTO 3 % (21-46); MONOCYTES ABSOLUTE AUTO 0.43 K/mm3 (0.16-1.47); MONOCYTES PERCENT AUTO 3 % (4-13); Mean Corpuscular HGB 33.2 pg (26.0-34.0); Mean Corpuscular HGB Conc 31.5 g/dL (31.5-36.5); Mean Corpuscular Volume 105 fL (80-100); Mean Platelet Volume 9.9 fL (9.1-12.4); NEUTROPHILS ABSOLUTE AUTO 13.98 K/mm3 (1.96-9.15); NEUTROPHILS PERCENT AUTO 93 % (41-73); Platelet Count 110 K/mm3 (150-400); RDW Coefficient Variation 17.7 % (11.7-14.2); RDW Standard Deviation 68.1 fL (35.1-46.3); Red Blood Cell Count 2.44 M/mm3 (3.80-5.20); White Blood Cell Count 15.09 K/mm3 (4.00-11.30)
[2022-11-20 16:05] LABS: Albumin, Blood 2.6 g/dL (3.4-5.0); Bilirubin, Total 0.3 mg/dL (0.1-1.0); Bun/Creatinine Ratio 73.8 (12.0-20.0); Calcium, Blood 8.5 mg/dL (8.5-10.1); Creatinine, Blood 0.42 mg/dL (0.40-1.00); Globulin, Blood 2.7 g/dL (2.2-4.0); Potassium, Blood 4.3 mmol/L (3.5-5.5); Total Protein, Blood 5.3 g/dL (6.4-8.2)
[2022-11-20 18:42] LABS: International Normalized Ratio 1.04; Prothrombin Time Results 10.9 Sec (9.7-11.5)
[2022-11-20] MEDS ORDERED: ONDA4ODT MM ×2 (19:39)
[2022-11-20] MEDS ORDERED: FENTANYL PATCH TOP ×2 (19:41)
--- NOTE | 2022-11-21 04:37 | NUR ---
Summary: Patient admitted overnight. AOx4. Currently on bedrest. VSS. Pain meds given per EMAR. Abdomen distended, patient does not tolerate sitting up straight very well. 4+ pitting edema to lower extremities and patient has foot drop. Pure wic in place as patient states she cannot stand. Bed alarm on. Call light in reach.
[2022-11-21 05:06] LABS: Hematocrit 28.5 % (33.0-51.0); Mean Corpuscular HGB 32.6 pg (26.0-34.0); Mean Corpuscular HGB Conc 31.6 g/dL (31.5-36.5); Mean Corpuscular Volume 103 fL (80-100); Mean Platelet Volume 9.9 fL (9.1-12.4); Platelet Count 140 K/mm3 (150-400); RDW Standard Deviation 67.3 fL (35.1-46.3); Red Blood Cell Count 2.76 M/mm3 (3.80-5.20); White Blood Cell Count 21.05 K/mm3 (4.00-11.30)
[2022-11-21 05:32] LABS: Albumin, Blood 2.8 g/dL (3.4-5.0); Bilirubin, Total 0.4 mg/dL (0.1-1.0); Bun/Creatinine Ratio 64.8 (12.0-20.0); Creatinine, Blood 0.49 mg/dL (0.40-1.00); Globulin, Blood 2.8 g/dL (2.2-4.0); Potassium, Blood 4.2 mmol/L (3.5-5.5); Total Protein, Blood 5.6 g/dL (6.4-8.2)
--- NOTE | 2022-11-21 14:16 | NUR ---
pt very anious and tearfull. States she is short of breath and feels like a band is around her chest and abdomen. she states he legs ahve been painful for some time especially the tops of her feet. She also states her arms and arm pits are terribly sore from her boyfriend having to help her up by himself. She is going to get parasentesis today. She is not on nicotine patch. Sheis getting prn meds for breakthrough pain but consistancy is variable. consider increasing fentanyl patch. will see what oncolgy recomends for further care.
[2022-11-21 14:39] LABS: Automated BF WBC Count 0.105 K/mm3 (0-999)
[2022-11-21 15:02] LABS: Body Fluid WBC Count 105 /mm3 (0-999)
[2022-11-21 15:15] LABS: Protein, Body Fluid 1.4 g/dL; RBC Count, Body Fluid 69 /mm3 (0-0)
[2022-11-21 15:20] LABS: Lactate Dehydrogenase, Body Fl 42 U/L
[2022-11-21 15:28] LABS: Total Cell Count, Body Fluid 100
[2022-11-21 15:29] LABS: Appearance, Body Fluid Clear (Clear); Color, Body Fluid L Yellow (None-Yellow)
--- NOTE | 2022-11-21 19:23 | NUR ---
SHIFT SUMMARY PT UP TO BEDSIDE COMMODE WITH 1 PERSON ASSIST. WEAK BUT REPORTS MORE PAIN TO FEET WHEN STANDING ON THEM AND MOVING THEM ABOUT. PARACENTESIS COMPLETED THIS AFTERNOON AND TOLERATED. STATED SHE FELT A BIT BETTER BUT HAD HOPED FOR MORE FLUID TO BE REMOVED. LE'S ELEVATED THROUGH THE DAY ON PILLOWS.
--- NOTE | 2022-11-22 04:04 | NUR ---
SHIFT SUMMARY PATIENT HAD NO ACUTE CHANGES. AXOX 4 AND ONE ASSIST TO BSC. ANXIOUS AT TIMES. MEDIPORT INTACT INFUSING KVO. PUREWICK IN PLACE FIRST HALF OF SHIFT. DENIES CHEST PAIN, SOB, AND N/V. REPORTED FEET PAIN AND NORCO GIVEN PER EMAR X ONE. LE ELEVATED WITH PILLOWS T/O SHIFT. VSS/AFEBRILE. CALL LIGHT IN REACH. BED IN LOWEST POSITION AND ALARM ACTIVATED. WILL CONTINUE TO MONITOR UNTIL DAY SHIFT NURSE ASSUMES CARE.
[2022-11-22 05:41] LABS: BASOPHILS ABSOLUTE AUTO 0.02 K/mm3 (0.00-0.23); BASOPHILS PERCENT AUTO 0 % (0-2); EOSINOPHILS ABSOLUTE AUTO 0.07 K/mm3 (0.00-0.68); EOSINOPHILS PERCENT AUTO 1 % (0-6); Hematocrit 24.6 % (33.0-51.0); Hemoglobin 7.8 g/dL (11.5-16.0); IMMATURE GRAN ABSOLUTE AUTO 0.09 K/mm3 (0.00-0.10); IMMATURE GRAN PERCENT AUTO 1 % (0-1); LYMPHOCYTES PERCENT AUTO 6 % (21-46); MONOCYTES ABSOLUTE AUTO 0.74 K/mm3 (0.16-1.47); MONOCYTES PERCENT AUTO 6 % (4-13); Mean Corpuscular HGB 32.9 pg (26.0-34.0); Mean Corpuscular HGB Conc 31.7 g/dL (31.5-36.5); Mean Corpuscular Volume 104 fL (80-100); NEUTROPHILS ABSOLUTE AUTO 11.36 K/mm3 (1.96-9.15); NEUTROPHILS PERCENT AUTO 87 % (41-73); Platelet Count 107 K/mm3 (150-400); RDW Standard Deviation 67.4 fL (35.1-46.3); Red Blood Cell Count 2.37 M/mm3 (3.80-5.20); White Blood Cell Count 13.08 K/mm3 (4.00-11.30)
[2022-11-22 06:01] LABS: Albumin, Blood 2.5 g/dL (3.4-5.0); Bilirubin, Total 0.3 mg/dL (0.1-1.0); Bun/Creatinine Ratio 75.5 (12.0-20.0); Calcium, Blood 8.3 mg/dL (8.5-10.1); Creatinine, Blood 0.42 mg/dL (0.40-1.00); Globulin, Blood 2.6 g/dL (2.2-4.0); Potassium, Blood 3.7 mmol/L (3.5-5.5); Total Protein, Blood 5.1 g/dL (6.4-8.2)
[2022-11-22 13:43] LABS: Percent Saturation 25.7 % (15.0-50.0)
--- NOTE | 2022-11-22 19:26 | NUR ---
SHIFT SUMMARY PT APPROVED BY OT TO GET UP TO BSC INDEPENDENTLY. PT CALLS FOR ASSIST NEEDED. CORDELIA BROUGHT HER COMPUTER IN FOR ACTIVITY AND SHE APPEARS CALMER THIS AFTERNOON THAN THIS MORNING. LE'S APPEAR LESS EDEMATOUS THAN YESTERDAY. DOES HAVE DEPENDEDNT EDEMA TO BUTTOCKS AND BACK. REPORTS MORE PAIN TO BACK THAN LEGS NOW. HEAT PAD IN PLACE THIS MORNING WITH EFFECT BUT IT GOT TOO HOT.
--- NOTE | 2022-11-23 03:48 | NUR ---
SHIFT MOSTLY UNREMARKABLE. PAIN HAS BEEN ADEQUATELY MANAGED ON CURRENT MEDICATOIN REGIMEN PER EMAR. 1 PERSON ASSIST TO BEDSIDE COMMODE. PT HAS BEEN ANXIOUS THROUGHOUT SHIFT AND IS INTERMITTENTLY AND SPORADICALLY DISTRAUGHT WITH CURRENT CONDITION AND PAIN LEVELS. RELAXES A BIT ONCE MEDICATED FOR PAIN. ABLE TO SLEEP WELL AFTER PAIN MEDICATION ADMINISTRATION. REMAINS AOX4 THROUGHOUT SHIFT. NS RUNNING KVO THROUGH Digital Message Display AT 10MLS/HR. CALL LIGHT LEFT WITHIN REACH.
[2022-11-23 04:48] LABS: BASOPHILS ABSOLUTE AUTO 0.01 K/mm3 (0.00-0.23); BASOPHILS PERCENT AUTO 0 % (0-2); EOSINOPHILS ABSOLUTE AUTO 0.03 K/mm3 (0.00-0.68); EOSINOPHILS PERCENT AUTO 0 % (0-6); Hematocrit 24.4 % (33.0-51.0); Hemoglobin 7.8 g/dL (11.5-16.0); IMMATURE GRAN ABSOLUTE AUTO 0.09 K/mm3 (0.00-0.10); IMMATURE GRAN PERCENT AUTO 1 % (0-1); LYMPHOCYTES ABSOLUTE AUTO 0.71 K/mm3 (0.84-5.20); LYMPHOCYTES PERCENT AUTO 5 % (21-46); MONOCYTES ABSOLUTE AUTO 0.74 K/mm3 (0.16-1.47); MONOCYTES PERCENT AUTO 6 % (4-13); Mean Corpuscular HGB 33.5 pg (26.0-34.0); Mean Corpuscular Volume 105 fL (80-100); Mean Platelet Volume 10.5 fL (9.1-12.4); NEUTROPHILS ABSOLUTE AUTO 11.87 K/mm3 (1.96-9.15); NEUTROPHILS PERCENT AUTO 88 % (41-73); Platelet Count 109 K/mm3 (150-400); RDW Coefficient Variation 17.8 % (11.7-14.2); RDW Standard Deviation 66.7 fL (35.1-46.3); Red Blood Cell Count 2.33 M/mm3 (3.80-5.20); White Blood Cell Count 13.45 K/mm3 (4.00-11.30)
[2022-11-23 04:58] LABS: Albumin, Blood 2.7 g/dL (3.4-5.0); Anion Gap 2 mmol/L (6-16); Blood Urea Nitrogen 29 mg/dL (8-24); Bun/Creatinine Ratio 53.1 (12.0-20.0); CO2, Blood 30 mmol/L (21-32); Calcium, Blood 8.4 mg/dL (8.5-10.1); Chloride, Blood 107 mmol/L (98-108); Creatinine, Blood 0.55 mg/dL (0.40-1.00); Glomerular Filtration Rate 110 (60-); Glucose, Blood 102 mg/dL (70-99); Phosphorus, Blood 3.7 mg/dL (2.5-4.9); Sodium, Blood 139 mmol/L (136-145)
[2022-11-23] MEDS ORDERED: B-12 COMPL1000 MCG/2 IM ×2 (10:22)
[2022-11-23] MEDS ORDERED: MIDO5 PO ×2 (10:23)
[2022-11-23] MEDS ORDERED: NICO21TP TOP ×2 (10:23)
[2022-11-23] MEDS ORDERED: VISBIOME 112.51 EACH PO ×2 (10:24)
[2022-11-23] MEDS ORDERED: FURO40 PO ×2 (10:24)
[2022-11-23] MEDS ORDERED: CEPH500 PO ×2 (10:24)
--- NOTE | 2022-11-23 17:44 | NUR ---
DISCHARGE INSTRUCTIONS COMPLETED AND DISCUSSED WITH PT EXPRESSING UNDERSTANDING. SCRIPTS FAXED TO [employer]. TO [facility] VIA W/C.
== END 2022-11-23 13:47 | disposition home or self-care (01) | DRG 435 ==
LOC: ER 12:15 → MEDS 17:47
PROVIDERS: Emergency Medicine; Family Medicine; ADMIT Internal Medicine
PROC: 02HV33Z Insertion of Infusion Device into Superior Vena Cava, Percutaneous Approach (ICD-10-PCS; 2022-11-20)
PROC: 0W9G3ZX Drainage of Peritoneal Cavity, Percutaneous Approach, Diagnostic (ICD-10-PCS; principal; 2022-11-21)
PROC: 3E03329 Introduction of Other Anti-infective into Peripheral Vein, Percutaneous Approach (ICD-10-PCS; 2022-11-21)
DX: C22.1 Intrahepatic bile duct carcinoma (principal); A41.9 Sepsis, unspecified organism; R18.8 Other ascites; L03.311 Cellulitis of abdominal wall; L03.115 Cellulitis of right lower limb; E87.70 Fluid overload, unspecified; M79.604 Pain in right leg; M79.605 Pain in left leg; D63.8 Anemia in other chronic diseases classified elsewhere; Z51.5 Encounter for palliative care; D51.9 Vitamin B12 deficiency anemia, unspecified; F10.20 Alcohol dependence, uncomplicated; F41.0 Panic disorder [episodic paroxysmal anxiety]; K21.9 Gastro-esophageal reflux disease without esophagitis; D69.6 Thrombocytopenia, unspecified; J44.9 Chronic obstructive pulmonary disease, unspecified; G25.81 Restless legs syndrome; F44.4 Conversion disorder with motor symptom or deficit; F17.210 Nicotine dependence, cigarettes, uncomplicated; G89.29 Other chronic pain; Z71.6 Tobacco abuse counseling; Z88.0 Allergy status to penicillin; Z91.018 Allergy to other foods; Z88.5 Allergy status to narcotic agent; Z79.899 Other long term (current) drug therapy; Z79.891 Long term (current) use of opiate analgesic; Z87.19 Personal history of other diseases of the digestive system; Z98.890 Other specified postprocedural states; Z88.8 Allergy status to other drugs, medicaments and biological substances
CPT/HCPCS: 36415; 49083; 71045; 74177; 80053; 80069; 81001; 82607; 82728; 82746; 83540; 83550; 83605; 83615; 83690; 83880; 84157; 85025; 85027; 85610; 87040; 87070; 87086; 87205; 89051; 93970; 96374-59; 96375; 96376; 97116; 97162; 97166; 97530; 97535; 99285-25; A9270; G0378; J0696; J1642; J1644; J1940; J3010; J3420; J7050; P9612; Q9967

== ENCOUNTER 2022-11-24 01:49 | Day surgery (SDC) | payer OTHER ==
[~2022-11-24 01:49] MED LIST changes: +B-12 COMPL1000 MCG/2 IM; +FENTANYL PATCH TOP; +FURO40 PO; +MIDO5 PO; +NICO21TP TOP
== END 2022-11-24 13:55 | disposition home or self-care (01) ==
LOC: ATC 01:49
DX: D51.9 Vitamin B12 deficiency anemia, unspecified (principal); F41.9 Anxiety disorder, unspecified; J44.9 Chronic obstructive pulmonary disease, unspecified; K21.9 Gastro-esophageal reflux disease without esophagitis
CPT/HCPCS: 96372; J3420

== ENCOUNTER 2022-11-25 00:18 | Day surgery (SDC) | payer OTHER | END 2022-11-25 13:32 | disposition home or self-care (01) | LOC: ATC 00:18 | DX: D51.9 Vitamin B12 deficiency anemia, unspecified (principal); F41.9 Anxiety disorder, unspecified; J44.9 Chronic obstructive pulmonary disease, unspecified; C22.8 Malignant neoplasm of liver, primary, unspecified as to type | CPT/HCPCS: 96372; J3420 ==

== ENCOUNTER 2022-11-26 03:56 | Day surgery (SDC) | payer OTHER | END 2022-11-26 13:39 | disposition home or self-care (01) | LOC: ATC 03:56 | DX: D51.9 Vitamin B12 deficiency anemia, unspecified (principal); F41.9 Anxiety disorder, unspecified; J44.9 Chronic obstructive pulmonary disease, unspecified; F17.210 Nicotine dependence, cigarettes, uncomplicated; C22.8 Malignant neoplasm of liver, primary, unspecified as to type; K21.9 Gastro-esophageal reflux disease without esophagitis | CPT/HCPCS: 96372; J3420 ==

== ENCOUNTER 2022-11-27 10:45 | Day surgery (SDC) | payer OTHER | END 2022-11-27 16:08 | disposition home or self-care (01) | LOC: ATC 10:45 | DX: D51.9 Vitamin B12 deficiency anemia, unspecified (principal); J44.9 Chronic obstructive pulmonary disease, unspecified; F17.210 Nicotine dependence, cigarettes, uncomplicated; Z88.0 Allergy status to penicillin; Z91.018 Allergy to other foods; Z88.8 Allergy status to other drugs, medicaments and biological substances; Z88.5 Allergy status to narcotic agent; Z79.899 Other long term (current) drug therapy | CPT/HCPCS: 96372; J3420 ==

== ENCOUNTER 2022-11-28 02:20 | Day surgery (SDC) | payer OTHER | END 2022-11-28 13:40 | disposition home or self-care (01) | LOC: ATC 02:20 | DX: D51.9 Vitamin B12 deficiency anemia, unspecified (principal); J44.9 Chronic obstructive pulmonary disease, unspecified; F17.210 Nicotine dependence, cigarettes, uncomplicated; Z88.0 Allergy status to penicillin; Z91.018 Allergy to other foods; Z88.8 Allergy status to other drugs, medicaments and biological substances; Z88.5 Allergy status to narcotic agent; Z79.899 Other long term (current) drug therapy | CPT/HCPCS: 96372; J3420 ==

== ENCOUNTER 2022-11-29 02:32 | Day surgery (SDC) | payer OTHER | END 2022-11-29 13:46 | disposition home or self-care (01) | LOC: ATC 02:32 | DX: C22.1 Intrahepatic bile duct carcinoma (principal); D63.0 Anemia in neoplastic disease | CPT/HCPCS: 96372; J3420 ==

== ENCOUNTER 2023-01-18 14:45 | Day surgery (SDC) | payer OTHER | END 2023-01-18 23:16 | disposition home or self-care (01) | LOC: US 14:45 | DX: C22.1 Intrahepatic bile duct carcinoma (principal); R18.0 Malignant ascites | CPT/HCPCS: 76705 ==

== ENCOUNTER 2023-02-01 14:50 | Day surgery (SDC) | payer OTHER | END 2023-02-01 22:38 | disposition home or self-care (01) | LOC: US 14:50 | DX: C22.1 Intrahepatic bile duct carcinoma (principal); R18.0 Malignant ascites | CPT/HCPCS: 76705 ==

== ENCOUNTER → 2023-02-01 | Outpatient (CLI) | payer OTHER ==
[2023-02-01 17:20] LABS: Albumin, Blood 3.1 g/dL (3.4-5.0); Albumin/Globulin Ratio 1.1 (0.8-1.8); Bilirubin, Total 0.6 mg/dL (0.1-1.0); Bun/Creatinine Ratio 21.1 (12.0-20.0); Calcium, Blood 11.4 mg/dL (8.5-10.1); Creatinine, Blood 0.66 mg/dL (0.40-1.00); Globulin, Blood 2.9 g/dL (2.2-4.0); Potassium, Blood 3.2 mmol/L (3.5-5.5)
== END | disposition home or self-care (01) ==
LOC: LAB SHORT 14:38 → LAB 14:38
PROVIDERS: Internal Medicine Hematology & Oncology
DX: C22.1 Intrahepatic bile duct carcinoma (principal)
CPT/HCPCS: 80053

== ENCOUNTER 2023-02-05 10:45 | Emergency (ER) | payer OTHER ==
[~2023-02-05] VITALS: Ht 160 cm; Wt 52.2 kg
[2023-02-05 11:40] LABS: BASOPHILS ABSOLUTE AUTO 0.05 K/mm3 (0.00-0.23); BASOPHILS PERCENT AUTO 1 % (0-2); EOSINOPHILS ABSOLUTE AUTO 0.02 K/mm3 (0.00-0.68); EOSINOPHILS PERCENT AUTO 0 % (0-6); Hematocrit 35.6 % (33.0-51.0); Hemoglobin 11.6 g/dL (11.5-16.0); IMMATURE GRAN ABSOLUTE AUTO 0.05 K/mm3 (0.00-0.10); IMMATURE GRAN PERCENT AUTO 1 % (0-1); LYMPHOCYTES ABSOLUTE AUTO 0.59 K/mm3 (0.84-5.20); LYMPHOCYTES PERCENT AUTO 7 % (21-46); MONOCYTES ABSOLUTE AUTO 0.49 K/mm3 (0.16-1.47); MONOCYTES PERCENT AUTO 6 % (4-13); Mean Corpuscular HGB 28.5 pg (26.0-34.0); Mean Corpuscular HGB Conc 32.6 g/dL (31.5-36.5); Mean Corpuscular Volume 88 fL (80-100); Mean Platelet Volume 11.4 fL (9.1-12.4); NEUTROPHILS ABSOLUTE AUTO 7.17 K/mm3 (1.96-9.15); NEUTROPHILS PERCENT AUTO 86 % (41-73); Platelet Count 136 K/mm3 (150-400); RDW Coefficient Variation 19.6 % (11.7-14.2); RDW Standard Deviation 59.7 fL (35.1-46.3); Red Blood Cell Count 4.07 M/mm3 (3.80-5.20); White Blood Cell Count 8.37 K/mm3 (4.00-11.30)
[2023-02-05 11:48] LABS: Albumin/Globulin Ratio 0.9 (0.8-1.8); Bilirubin, Total 1.1 mg/dL (0.1-1.0); Bun/Creatinine Ratio 10.9 (12.0-20.0); Calcium, Blood 10.4 mg/dL (8.5-10.1); Creatinine, Blood 0.55 mg/dL (0.40-1.00); Globulin, Blood 3.2 g/dL (2.2-4.0); Potassium, Blood 3.6 mmol/L (3.5-5.5); Total Protein, Blood 6.2 g/dL (6.4-8.2)
[2023-02-05 12:30] VITALS: BP 100/54
== END 2023-02-05 13:53 | disposition home or self-care (01) ==
LOC: ER 10:45
PROVIDERS: Emergency Medicine
DX: R10.33 Periumbilical pain (principal); G89.29 Other chronic pain; J44.9 Chronic obstructive pulmonary disease, unspecified; F17.210 Nicotine dependence, cigarettes, uncomplicated; Z88.0 Allergy status to penicillin; Z91.018 Allergy to other foods; Z88.5 Allergy status to narcotic agent; Z88.8 Allergy status to other drugs, medicaments and biological substances; Z79.899 Other long term (current) drug therapy
CPT/HCPCS: 74022; 80053; 83690; 85025; J1170; J1790; J7030

== ENCOUNTER 2023-03-07 11:00 | Day surgery (SDC) | payer OTHER | END 2023-03-07 22:45 | disposition home or self-care (01) | LOC: US 11:00 | DX: C22.1 Intrahepatic bile duct carcinoma (principal); R18.0 Malignant ascites | CPT/HCPCS: 49083 ==

== ENCOUNTER 2023-03-22 13:40 | Day surgery (SDC) | payer OTHER | END 2023-03-22 22:42 | disposition home or self-care (01) | LOC: US 13:40 | PROC: 0W9G3ZZ Drainage of Peritoneal Cavity, Percutaneous Approach (ICD-10-PCS; principal; 2023-03-22) | DX: C22.1 Intrahepatic bile duct carcinoma (principal); R18.0 Malignant ascites | CPT/HCPCS: 49083 ==

== ENCOUNTER 2023-04-07 12:30 | Inpatient (IN) | payer OTHER ==
[~2023-04-07] VITALS: Ht 162.6 cm; Wt 53.9 kg
[2023-04-07 13:52] LABS: BASOPHILS ABSOLUTE AUTO 0.06 K/mm3 (0.00-0.23); BASOPHILS PERCENT AUTO 0 % (0-2); EOSINOPHILS ABSOLUTE AUTO 0.03 K/mm3 (0.00-0.68); EOSINOPHILS PERCENT AUTO 0 % (0-6); Hemoglobin 13.8 g/dL (11.5-16.0); IMMATURE GRAN ABSOLUTE AUTO 0.11 K/mm3 (0.00-0.10); IMMATURE GRAN PERCENT AUTO 1 % (0-1); LYMPHOCYTES ABSOLUTE AUTO 0.83 K/mm3 (0.84-5.20); LYMPHOCYTES PERCENT AUTO 4 % (21-46); MONOCYTES ABSOLUTE AUTO 1.45 K/mm3 (0.16-1.47); MONOCYTES PERCENT AUTO 7 % (4-13); Mean Corpuscular HGB 29.7 pg (26.0-34.0); Mean Corpuscular HGB Conc 32.9 g/dL (31.5-36.5); Mean Corpuscular Volume 90 fL (80-100); Mean Platelet Volume 9.6 fL (9.1-12.4); NEUTROPHILS PERCENT AUTO 89 % (41-73); Platelet Count 186 K/mm3 (150-400); RDW Coefficient Variation 19.4 % (11.7-14.2); RDW Standard Deviation 60.6 fL (35.1-46.3); Red Blood Cell Count 4.65 M/mm3 (3.80-5.20); White Blood Cell Count 22.48 K/mm3 (4.00-11.30)
[2023-04-07 14:18] LABS: Albumin/Globulin Ratio 0.7 (0.8-1.8); Bilirubin, Total 2.4 mg/dL (0.1-1.0); Bun/Creatinine Ratio 17.6 (12.0-20.0); Calcium, Blood 13.1 mg/dL (8.5-10.1); Creatinine, Blood 0.57 mg/dL (0.40-1.00); Globulin, Blood 4.1 g/dL (2.2-4.0); Phosphorus, Blood 1.8 mg/dL (2.5-4.9); Potassium, Blood 3.2 mmol/L (3.5-5.5); Total Protein, Blood 7.1 g/dL (6.4-8.2)
[2023-04-07 18:19] LABS: Base Excess Venous 7.6 mmol/L; Bicarbonate Venous 30.7 mmol/L (24.0-30.0); PCO2 Venous 42.2 mmHg (38-42); pH Blood Venous 7.48 (7.34-7.37)
[2023-04-07 18:23] LABS: BASOPHILS ABSOLUTE AUTO 0.04 K/mm3 (0.00-0.23); BASOPHILS PERCENT AUTO 0 % (0-2); EOSINOPHILS ABSOLUTE AUTO 0.02 K/mm3 (0.00-0.68); EOSINOPHILS PERCENT AUTO 0 % (0-6); Hematocrit 32.9 % (33.0-51.0); Hemoglobin 10.9 g/dL (11.5-16.0); IMMATURE GRAN ABSOLUTE AUTO 0.09 K/mm3 (0.00-0.10); IMMATURE GRAN PERCENT AUTO 0 % (0-1); LYMPHOCYTES ABSOLUTE AUTO 0.68 K/mm3 (0.84-5.20); LYMPHOCYTES PERCENT AUTO 3 % (21-46); MONOCYTES ABSOLUTE AUTO 1.64 K/mm3 (0.16-1.47); MONOCYTES PERCENT AUTO 7 % (4-13); Mean Corpuscular HGB 29.9 pg (26.0-34.0); Mean Corpuscular HGB Conc 33.1 g/dL (31.5-36.5); Mean Corpuscular Volume 90 fL (80-100); Mean Platelet Volume 9.7 fL (9.1-12.4); NEUTROPHILS ABSOLUTE AUTO 19.87 K/mm3 (1.96-9.15); NEUTROPHILS PERCENT AUTO 89 % (41-73); Platelet Count 148 K/mm3 (150-400); RDW Coefficient Variation 18.9 % (11.7-14.2); RDW Standard Deviation 60.7 fL (35.1-46.3); Red Blood Cell Count 3.64 M/mm3 (3.80-5.20); White Blood Cell Count 22.34 K/mm3 (4.00-11.30)
[2023-04-07 18:43] LABS: International Normalized Ratio 1.3; Prothrombin Time Results 13.4 Sec (9.7-11.5)
[2023-04-07 18:53] LABS: Acetaminophen, Random <2.0 ug/mL (10.0-30.0); Magnesium, Blood 1.7 mg/dL (1.6-2.4); Salicylate 2.6 mg/dL (2.8-20.0)
[2023-04-07 18:54] LABS: Alanine Aminotransfer (ALT/SGP 11 U/L (12-78); Albumin, Blood 2.6 g/dL (3.4-5.0); Albumin/Globulin Ratio 0.8 (0.8-1.8); Alk Phos 225 U/L (50-136); Anion Gap 10 mmol/L (6-16); Aspartate Aminotrans (AST/SGOT 36 U/L (12-37); Bilirubin, Total 2.2 mg/dL (0.1-1.0); Blood Urea Nitrogen 11 mg/dL (8-24); Bun/Creatinine Ratio 19.2 (12.0-20.0); CO2, Blood 30 mmol/L (21-32); Calcium, Blood 12.4 mg/dL (8.5-10.1); Chloride, Blood 96 mmol/L (98-108); Creatinine, Blood 0.57 mg/dL (0.40-1.00); Globulin, Blood 3.4 g/dL (2.2-4.0); Glomerular Filtration Rate 108 (60-); Glucose, Blood 119 mg/dL (70-99); Phosphorus, Blood 1.9 mg/dL (2.5-4.9); Potassium, Blood 2.7 mmol/L (3.5-5.5); Sodium, Blood 136 mmol/L (136-145)
[2023-04-07 21:40] LABS: Source, Urine Clean Catch
[2023-04-07 21:45] LABS: Bilirubin, Urine Neg (Neg); Blood, Urine Neg (Neg); Glucose Qualitative, Urine Neg (Neg); Ketones, Urine 3+ (Neg); Leukocyte Esterase, Urine Neg (Neg); Nitrite, Urine Neg (Neg); Protein, Urine 1+ (Neg); Urobilinogen, Urine 1+ (Normal)
[2023-04-07 21:47] LABS: Appearance, Urine Clear (Clear); Color, Urine Yellow (P-Yellow)
[2023-04-07 22:27] LABS: Influenza A, PCR NEGATIVE (NEGATIVE); Influenza B, PCR NEGATIVE (NEGATIVE); Resp Syncytial Virus, PCR NEGATIVE (NEGATIVE); SARS-Cov-2 (COVID-19) PCR, MMC NEGATIVE (NEGATIVE)
[2023-04-08 00:41] VITALS: BP 122/64
--- NOTE | 2023-04-08 02:51 | NUR ---
CALLED DR. CASTELLANOS TO CLARIFY MEDICATION AND FLUID ORDERS. PT CAME UP FROM ER WITH K RADHAER RUNNING IN [place]. LR WAS HUNG BUT NOT STARTED. PER , RUN LR FIRST FOLLOWED BY NS AND COMPLETE K RIDER FOLLOWED BY Marti CONNELLY.
--- NOTE | 2023-04-08 03:28 | NUR ---
ER ADMIT PT ARRIVED EXTREMELY DROWSY. UNABLE TO STAY AWAKE LONG ENOUGH TO ANSWER MAJORITY OF MY ADMISSION QUESTIONS. PT IS CRYING OUT IN PAIN WITH MOVEMENT. REPORTS PAIN IN THE ABDOMEN WITH NAUSEA. TREATED PER EMAR.
[2023-04-08 05:21] LABS: BASOPHILS ABSOLUTE AUTO 0.02 K/mm3 (0.00-0.23); BASOPHILS PERCENT AUTO 0 % (0-2); EOSINOPHILS ABSOLUTE AUTO 0.08 K/mm3 (0.00-0.68); EOSINOPHILS PERCENT AUTO 1 % (0-6); Hematocrit 28.4 % (33.0-51.0); Hemoglobin 9.3 g/dL (11.5-16.0); IMMATURE GRAN ABSOLUTE AUTO 0.04 K/mm3 (0.00-0.10); IMMATURE GRAN PERCENT AUTO 0 % (0-1); LYMPHOCYTES ABSOLUTE AUTO 0.64 K/mm3 (0.84-5.20); LYMPHOCYTES PERCENT AUTO 5 % (21-46); MONOCYTES ABSOLUTE AUTO 1.02 K/mm3 (0.16-1.47); MONOCYTES PERCENT AUTO 7 % (4-13); Mean Corpuscular HGB Conc 32.7 g/dL (31.5-36.5); Mean Corpuscular Volume 92 fL (80-100); Mean Platelet Volume 9.8 fL (9.1-12.4); NEUTROPHILS PERCENT AUTO 87 % (41-73); Platelet Count 126 K/mm3 (150-400); RDW Coefficient Variation 18.9 % (11.7-14.2); RDW Standard Deviation 61.6 fL (35.1-46.3)
--- NOTE | 2023-04-08 06:05 | NUR ---
LATE ENTRY- PT SEEMS TO BE IN EXTREME DISTRESS DUE TO THE PAIN IN HER ABDOMEN. MD NOTIFIED. SEE EMAR. TREATED PER EMAR
[2023-04-08 06:24] LABS: Albumin, Blood 2.7 g/dL (3.4-5.0); Albumin/Globulin Ratio 0.9 (0.8-1.8); Bilirubin, Total 2.1 mg/dL (0.1-1.0); Bun/Creatinine Ratio 18.7 (12.0-20.0); Calcium, Blood 11.3 mg/dL (8.5-10.1); Creatinine, Blood 0.59 mg/dL (0.40-1.00); Globulin, Blood 2.9 g/dL (2.2-4.0); Potassium, Blood 3.1 mmol/L (3.5-5.5); Total Protein, Blood 5.6 g/dL (6.4-8.2)
[2023-04-08 07:39] VITALS: BP 117/77
--- NOTE | 2023-04-08 08:05 | NUR ---
SHIFT SUMMARY- PT PAIN HAS BEEN UNCONTROLLED. ATTEMPTED MEDICATING PER EMAR, REPOSITION, THERAPUTIC MUSIC, BACK RUB, AND HEATING PAD. I WAS UNABLE TO PROPERLY ASSESS THE PT DUE TO INABILITY TO STAY AWAKE DURING ADMISSION AND UNCONTROLLED PAIN. PT ANSWERED MOST QUESTIONS WITH "I DON'T KNOW" THE ADMISSION HX AND MEDICAITONS ARE NOT COMPLETE BECAUSE THE PT WAS UNABLE TO VERIFY THE INFORMAITON WITH ME. I ASKED IF SOMEONE COULD BRING US A MEDICATION LIST. SHE WAS UNABLE TO GIVE A DIRECT ANSWER. I WAS ABLE TO GET A FEW BITS OF INFORMAITON THIS MORNING. SHE REPORTS NO BM FOR 10 DAYS. HER BOYFRIEND PLACED A FENTANYL PATCH ON LAST NIGHT BUT IT FELL OFF SOON AFTER. I DID NOT FIND A FENTANYL PATCH ON THE PT DURING MY SKIN ASSESSMENT. I ALSO ASKED THE ONCOMING RN TO KEEP A LOOK OUT FOR ONE JUST INCASE. I MEASURED HER ABDOMEN AT 0430. 100.33 CM. BED IS IN THE LOWEST POSITION WITH THE BED ALARM ON. CALL LIGHT IS IN REACH. WHEN SHE WAS ADMITTED
--- NOTE | 2023-04-08 08:06 | NUR ---
CALLED DR SAGE, MADE AWARE OF PT'S CONT PAIN 04/05 ABD PAIN. INCREASE IN FENT IV UNTIL FENT PATCH KICKS IN
[2023-04-08 10:50] LABS: Hematocrit 29.6 % (33.0-51.0); Hemoglobin 9.7 g/dL (11.5-16.0); Mean Corpuscular HGB 29.8 pg (26.0-34.0); Mean Corpuscular HGB Conc 32.8 g/dL (31.5-36.5); Mean Corpuscular Volume 91 fL (80-100); Mean Platelet Volume 10.1 fL (9.1-12.4); Platelet Count 157 K/mm3 (150-400); RDW Coefficient Variation 19.2 % (11.7-14.2); RDW Standard Deviation 60.7 fL (35.1-46.3); Red Blood Cell Count 3.26 M/mm3 (3.80-5.20); White Blood Cell Count 15.18 K/mm3 (4.00-11.30)
[2023-04-08 11:05] LABS: Bun/Creatinine Ratio 17.9 (12.0-20.0); Creatinine, Blood 0.5 mg/dL (0.40-1.00); Magnesium, Blood 1.5 mg/dL (1.6-2.4); Phosphorus, Blood 3.8 mg/dL (2.5-4.9); Potassium, Blood 3.3 mmol/L (3.5-5.5)
[2023-04-08 15:10] VITALS: BP 118/61
--- NOTE | 2023-04-08 15:58 | NUR ---
Met with pt and s/o at bedside today. The pt appears confused, was crying out and attempting to change positions often. She reports feeling "uncomfortable", and "full" related to abd ascites. She is due for a paracentesis tomorrow to help with this. However, she doesn't appear able to follow more than a single verbal command at a time. Spoke with pt's s/o Lon, he reports pt has stage 4 liver cancer and has for approx 9 months, with chemo paused due to malnutrition. Pt and boyfriend say they want to wait until tomorrow afer paracentesis to evaluate next steps. S/O does report he knows the pt is "dying", and is interested in hospice information. Pt states several times during the visit she wants to leave the hospital and never come back. Will re-address tomorrow after paracentesis.
[2023-04-08 20:10] VITALS: BP 104/80
--- NOTE | 2023-04-08 20:28 | NUR ---
SUMMARY- PT A/O X3, WITHDRAWN, FREQ MOANING AND RESTLESS. C/O ABD TIGHTNESS AND PAIN. PLAN FOR U.S GUIDED PARACENTESIS TOMORROW AM. HAD TO WAIT RELATED TO LOVENOX ADMIN THIS AM. PAIN SEEMS TO BE CONTROLLED IN LATER HALF OF SHIFT. NEW FENT PATCH PLACED TO R SHOULDERBLADE THIS AM. ALSO IV FENT PRN WITH SEEMINGLY MOD RELEIF AEB PT APPEARING TO BE RESTING QUIETLY IN HER BED AND NOT MOANING. LAYS ON L SIDE WITH HEAT PAD. UP TO COMMODE SBA AND VOIDS. NO BM THIS SHIFT. WAS UNABLE TO TOLERATE LACTALOSE AND HAD EMESIS RIGHT AWAY AFTER PO INTAKE. DARK OLIVE COLOR WITH FLECKS OF BLACK. HAD ADDITIONAL EMISIS IN THE SHIFT, APPROX 3OOML EACH TIME. CALLED AND GOT INCREASE IN ZOFRAN AND ADDED REGLAN. BOYFRIEND AT BEDSIDE, INVOLVED IN PT'S CARE. FAMILY SPOKE WITH FANNY WITH PALLIATIVE, AIDING IN TRANSITIONING TO POSSIBLE HOSPICE. HR 130-140'S LATER PART OF SHIFT, DR SAGE MADE AWARE. INSTRUCTED TO CONT WITH PAIN CONTROL AND JI. BLOOD CX SENT THIS PM, ONE FROM PORT AND ONE PERIPH VIA LAB.
[2023-04-09] MEDS ORDERED: CHOLESTYRAMI239.4 G5 PO (01:57)
[2023-04-09 02:28] VITALS: BP 89/50
[2023-04-09 03:40] VITALS: BP 116/54
[2023-04-09 04:21] VITALS: BP 98/52
[2023-04-09 05:27] LABS: Hematocrit 30.7 % (33.0-51.0); Hemoglobin 10.1 g/dL (11.5-16.0); Mean Corpuscular HGB 29.8 pg (26.0-34.0); Mean Corpuscular HGB Conc 32.9 g/dL (31.5-36.5); Mean Corpuscular Volume 91 fL (80-100); Mean Platelet Volume 10.3 fL (9.1-12.4); Platelet Count 162 K/mm3 (150-400); RDW Coefficient Variation 19.8 % (11.7-14.2); Red Blood Cell Count 3.39 M/mm3 (3.80-5.20); White Blood Cell Count 11.97 K/mm3 (4.00-11.30)
--- NOTE | 2023-04-09 05:28 | NUR ---
PT HAS BEEN AOX1-2 WITH CONFUSION. PT CAN BE IMPULSIVE AT TIMES AND WILL SIT UP ON SIDE OF BED THINKING ABOUT GOING SOMEWHERE. PT HAS BEEN TREATED FOR PAIN PER EMAR, HR HAS BEEN THE CONSTANT ISSUE. START OF SHIFT 130-150s. DR NOE NOTIFIED AND INCREASED PAIN MEDICATION. THIS WAS NOT EFFECTIVE AND PT GOT UP TO [address] CASTELLANOS WAS NOTIFIED. HE ADDED MEDICATION TO EMAR AND HR WENT DOWN TO 112. THIS DID NOT LAST LONG, BY 0228 HR WAS 146 PER HOSPITAL CODER,BUT BP WAS ONLY 89/50. DR CASTELLANOS WAS NOTIED AND 250 NS BOLUS WAS GIVEN WITH ANOTHER DOSE IV BP MED. THIS AGAIN DID NOT LAST AND BP WAS CLIMBING INTO 140s. DR CASTELLANOS MADE THE DECISION TO MOVE PT TO PCU 15. REPORT WAS GIVEN PRIOR TO TRANSFER. ALL PERSONAL BELONGINGS WERE MOVED WITH PT.
--- NOTE | 2023-04-09 05:28 | NUR ---
UPDATE PATIENT TRANSFERRED FROM [facility]. REPORT RECEIVED FROM MEDICAL FLOOR NURSE. PATIENT ARRIVES TO PCU 15. ABLE TO ANSWER ALL QUESTIONS APPROPRIATELY. PATIENT SLIGHTLY HYPOTENSIVE, TACHYPNEIC WITH RR MID 20s ON RA, AND TACHYCARDIC WITH HR 130s. DENIES CHEST PAIN OR SHORTNESS OF BREATH. LUNG SOUNDS DIMINISHED T/O. ABDOMEN DISTENDEND, FIRM ON PALPATION, HYPOACTIVE BOWEL TONES. PATIENT NAUSEATED, PROVIDED WITH EMESIS BAG AND ORAL SWABS. ATTENDS IN PLACE. PATIENT WITH WOUND TO LEFT COCCYX/BUTTOCK, SEE PHOTO IN CHART. PER MEDICAL FLOOR NURSE, PATIENT NPO SINCE 0000 FOR POSSIBLE PARACENTESIS TODAY. BED ALARM ON, CALL LIGHT IN REACH.
[2023-04-09 05:41] VITALS: BP 98/65
[2023-04-09 06:01] LABS: Bun/Creatinine Ratio 15.3 (12.0-20.0); Calcium, Blood 10.6 mg/dL (8.5-10.1); Creatinine, Blood 0.72 mg/dL (0.40-1.00); Magnesium, Blood 1.9 mg/dL (1.6-2.4); Potassium, Blood 3.1 mmol/L (3.5-5.5)
[2023-04-09 06:09] LABS: BAND PERCENT MAN 22 % (0-8); BASOPHILS ABSOLUTE MAN 0.11 K/mm3 (0.00-0.23); BASOPHILS PERCENT MAN 1 % (0-2); EOSINOPHILS PERCENT MAN 0 % (0-6); LYMPHOCYTES ABSOLUTE MAN 0.47 K/mm3 (0.84-5.20); LYMPHOCYTES PERCENT MAN 4 % (21-46); MONOCYTES ABSOLUTE MAN 1.07 K/mm3 (0.16-1.47); MONOCYTES PERCENT MAN 9 % (4-13); NEUTROPHILS ABSOLUTE MAN 10.29 K/mm3 (1.96-9.15); SEG NEUTROPHILS PERCENT MAN 64 % (41-73); TOTAL CELLS COUNTED 100
[2023-04-09 07:43] VITALS: BP 88/58
--- NOTE | 2023-04-09 10:30 | NUR ---
OBTAINED SHIFT REPORT FROM NIGHT RN. ENTERED ROOM AT 0730 AND PATIENT WAS RESTLESS, SOMEWHAT AGITATED, TACHYNEIC RR 60, TACHY AT 140, LOW BP 80S OVER 60S, AND DESATURATED AT 86%. CALLED FOR ASSISTANCE FROM [employer] REP, SHAD LEIVA. PLACED 3L O2 VIA NC. RT GIOVANNI LAUGHLIN CAME TO ROOM AND SET UP SUCTION. PATIENT REPORTED SEVER ABD PAIN AND NAUSEA. MEDICATED WITH FENTANYL AND ZOFRAN PER EMAR. [employer] REP CALLED PALLIATIVE CARE AND DR AGUILA. DR AGUILA CAME TO BEDSIDE ABOUT 0815 AND DISCUSSED PATIENT'S TERMINAL DIAGNOSIS AND NEED FOR CONFORT CARE AND DNR STATUS. PATIENT AGREED TO COMFORT CARE AND DNR STATUS. PATIENT IMMEDIATELY CALMED AFTER THIS DISCUSSION. CC ORDERS PLACED, ALL LINES AND TUBES DC'D EXCEPT FOR NC FOR BREATHING COMFORT. DR AGUILA CALLED AND INFORMED FAMILY MEMBERS. AT 0900 THIS RN ENTERED ROOM TO ADMIN MEDICATION AND PATIENT WAS . NO PULSE OR HR ON AUSCULTATION, NO BREATHING, UNRESPONSIVE. NOTIFIED [employer] REP AND DR AGUILA. [employer] REP CALLED AND NOTIFIED FAMILY MEMBER THAT PATIENT HAD PASSED. THIS RN AND AIDE GAVE PATIENT A BED BATH, CHANGED LINENS. A FOOD CART FOR ROOM WAS ORDERED. SPIRITUAL CARE AND PALLIATIVE CARE WERE NOTIFIED. AT 1015 PATIENT'S SIGNIFICANT OTHER ARRIVED AND SPIRITUAL CARE ARRIVED TO BEDSIDE.
--- NOTE | 2023-04-09 11:13 | NUR ---
Spiritual care visit conducted. Patient's SO, Lon is bedside and grieving appropriately. He tells me about their journey in life together over the last 13 yrs and about her struggles in life with alcoholism, cancer and family unit complications. He shares about the love they had that only got stronger the more challenges they faced. He explained about how they overcame her addiction, battled through cancer and chemo and navigated the storms of life together. I provided therapeutic listening, gentle bereavement pet counselor and prayer. Lon responded well and showed signs of being comforted.
== END 2023-04-09 13:04 | DRG 391 ==
LOC: ER 12:30 → MEDS 12:31 → PCU 04-08 14:54 → MEDS 04-08 15:02 → PCU 04-09 05:13
PROVIDERS: Emergency Medicine; Internal Medicine; Physician Assistant; ADMIT Internal Medicine
DX: R11.2 Nausea with vomiting, unspecified (principal); G92.8 Other toxic encephalopathy; J96.01 Acute respiratory failure with hypoxia; C22.1 Intrahepatic bile duct carcinoma; R64 Cachexia; E86.0 Dehydration; F10.21 Alcohol dependence, in remission; K70.31 Alcoholic cirrhosis of liver with ascites; F41.0 Panic disorder [episodic paroxysmal anxiety]; K21.9 Gastro-esophageal reflux disease without esophagitis; J44.9 Chronic obstructive pulmonary disease, unspecified; E87.6 Hypokalemia; Z51.5 Encounter for palliative care; F17.210 Nicotine dependence, cigarettes, uncomplicated; E83.42 Hypomagnesemia; E83.39 Other disorders of phosphorus metabolism; Z20.822 Contact with and (suspected) exposure to COVID-19; E83.52 Hypercalcemia; D64.9 Anemia, unspecified; K76.82 Hepatic encephalopathy; G89.29 Other chronic pain; E88.09 Other disorders of plasma-protein metabolism, not elsewhere classified; T45.1X5A Adverse effect of antineoplastic and immunosuppressive drugs, initial encounter; Z79.891 Long term (current) use of opiate analgesic; Z79.899 Other long term (current) drug therapy; Z98.890 Other specified postprocedural states; Z87.19 Personal history of other diseases of the digestive system; Z88.0 Allergy status to penicillin; Z88.8 Allergy status to other drugs, medicaments and biological substances; Z91.018 Allergy to other foods; Z91.048 Other nonmedicinal substance allergy status; Z68.20 Body mass index [BMI] 20.0-20.9, adult; Z88.5 Allergy status to narcotic agent
CPT/HCPCS: 0241U; 36415; 70450; 71046; 74177; 80048; 80053; 82140; 82550; 82803; 83690; 83735; 84100; 84443; 84484; 85025; 85027; 85610; 85730; 93005; 93010; 94762; 96361; 96365; 96366; 96367; 96368; 96372; 96375; 96376; 99285-25; A9270; G0378; G0480; J1170; J1650; J2405; J2765; J3010; J3475; J3480; J7030; J7050; J7060; J7120; P9047; Q9967